=== PATIENT | female | born 1950 | race Caucasian/White ===

== ENCOUNTER 2016-08-22 11:20 | Day surgery (SDC) | payer MEDICARE, OTHER ==
[2016-08-22] VITALS (9 sets, daily range): BP systolic 152–181; BP diastolic 93–99; PULSE 74–94; RESP 18; TEMP 97.9–98.2; O2SAT 97–99
[~2016-08-22] VITALS: Ht 167.6 cm; Wt 68.9 kg
[~2016-08-22 11:20] MED LIST: ALBU8I INH; AMLO5 PO; BARIATRIC MULTIVIT PO; BIOTCAP PO; CYMB60CA PO; DOCU50SY2 PO; ESTR0.053 TD; GAS-CAP3 PO; HYDR25TA35 PO; L-LY500T4 PO; LEXA10TA PO; LORA-392 PO; LOSA100T PO; PROT40TA PO; REST30CA PO; SIMV20 PO; SYNT137T PO; TYLE500T PO; WAL-10TA2 PO; WELLTAB39 PO
[2016-08-22] MEDS ORDERED: POVIDONE IODINE 5% (ANTISEPSIS KIT) 4 APPLICATIONS EACH NARE SCH (12:30)
[2016-08-22] MEDS ORDERED: METOPROLOL TARTRATE 25 MG TAB PO PRN (12:30)
[2016-08-22] MEDS ORDERED: CHLORHEXIDINE GLUCONATE 2 % 1 PACK (2 CLOTHS) TOP SCH (12:30)
[2016-08-22] MEDS ORDERED: ceFAZolin 2 GM PREMIX 50 ML IV SCH (12:30)
[2016-08-22] MEDS ORDERED: VANCOMYCIN 1000 MG/NS 250 ML IV SCH ×2 (12:30)
[2016-08-22] MEDS ORDERED: INSULIN HUMAN REGULAR 1,000 UNITS/10 ML VIAL SQ PRN (12:30)
[2016-08-22] MEDS ORDERED: MUPIROCIN 2% OINT 1 APPLIC/GM SYR NASAL SCH (13:00)
[2016-08-22] MEDS ORDERED: NS 1000 ML IV SCH (13:00)
[2016-08-22] MEDS ORDERED: LACTATED RINGER'S 1000 ML IV SCH (13:00)
[2016-08-22] MEDS: SODIUM CHLORID 0.9% 500 ML IV SCH (13:00)
[2016-08-22 13:13] LABS: AUTOMATED NEUTROPHIL # 3.2 TH/MM3 (1.8-7.7); BASOPHIL # 0.1 TH/MM3 (0-0.2); EOSINOPHIL # 0.2 TH/MM3 (0-0.4); EOSINOPHIL % 3.6 % (0.0-4.0); HEMATOCRIT 37.5 % (35.0-46.0); HEMO FLAGS DIFF FINAL; LYMPH % 34.6 % (9.0-44.0); LYMPHOCYTE # 2.2 TH/MM3 (1.0-4.8); MEAN CELL VOLUME 93.6 FL (80.0-100.0); MEAN CORPUSCULAR HEMOGLOBIN 30.5 PG (27.0-34.0); MEAN CORPUSCULAR HGB CONC 32.6 % (32.0-36.0); MONO % 9.4 % (0.0-8.0); NEUT % 51.4 % (16.0-70.0); PLATELET COUNT 232 TH/MM3 (150-450); RED BLOOD COUNT 4.01 MIL/MM3 (4.00-5.30); RED CELL DISTRIBUTION WIDTH 12.8 % (11.6-17.2); WHITE BLOOD COUNT 6.2 TH/MM3 (4.0-11.0)
[2016-08-22] MEDS ORDERED: HYDR25TA35 PO (13:13)
[2016-08-22] MEDS ORDERED: LIOT5TAB3 PO (13:13)
[2016-08-22] MEDS ORDERED: LEVO-86 PO (13:13)
[2016-08-22] MEDS ORDERED: ATEN25TA PO (13:13)
[2016-08-22] MEDS ORDERED: SIMV40TA PO (13:13)
[2016-08-22] MEDS ORDERED: STOO100C PO (13:13)
[2016-08-22] MEDS ORDERED: FOLI5CAP PO (13:13)
[2016-08-22] MEDS ORDERED: CYMB60CA PO (13:13)
[2016-08-22] MEDS ORDERED: SIME180C2 PO (13:13)
[2016-08-22] MEDS ORDERED: LORA10TA PO (13:13)
[2016-08-22] MEDS ORDERED: LOSA100T PO (13:13)
[2016-08-22] MEDS ORDERED: VIVE0.05 T-DERMAL (13:13)
[2016-08-22] MEDS ORDERED: BIOT7500 PO (13:13)
[2016-08-22] MEDS ORDERED: CALC600T10 PO (13:13)
[2016-08-22] MEDS ORDERED: AMLO10TA2 PO (13:13)
[2016-08-22] MEDS ORDERED: LORA-373 PO (13:13)
[2016-08-22] MEDS ORDERED: TYLE650T9 PO (13:13)
[2016-08-22] MEDS ORDERED: PROT40TA PO (13:13)
[2016-08-22] MEDS ORDERED: TEMA15CA PO (13:13)
[2016-08-22] MEDS ORDERED: WELLTAB39 PO (13:13)
[2016-08-22] MEDS ORDERED: L-LY500C2 PO (13:13)
[2016-08-22] MEDS ORDERED: NORC5TAB PO (13:13)
[2016-08-22] MEDS ORDERED: VENTAER INH (13:13)
[2016-08-22] MEDS ORDERED: PROBCAP11 PO (13:13)
[2016-08-22 13:22] LABS: APTT (PATIENT) 24.6 SEC (24.3-30.1); INTERNATIONAL NORMALIZED RATIO 0.9 RATIO; PROTHROMBIN TIME - PATIENT 10.4 SEC (9.8-11.6)
[2016-08-22] MEDS ORDERED: diphenhydrAMINE HCL 50 MG/ML VIAL ONE (13:33)
[2016-08-22] MEDS ORDERED: HYDROCORTISONE SOD SUCCINATE 100 MG VIAL ONE (13:33)
[2016-08-22 13:36] LABS: BICARBONATE 28.8 MEQ/L (21.0-32.0); POTASSIUM 4.1 MEQ/L (3.5-5.1)
[2016-08-22] MEDS ORDERED: VANCOMYCIN 500 MG VIAL ONE (13:49)
[2016-08-22] MEDS ORDERED: LIDOCAINE HCL 2% 50 ML VIAL ONE (13:50)
[2016-08-22] MEDS ORDERED: ALBUTEROL SULFATE 90 MCG/ACT HFA 8 GM INHALER INH PRN (15:15)
[2016-08-22] MEDS ORDERED: ZOLPIDEM TARTRATE 5 MG TAB PO PRN (15:15)
[2016-08-22] MEDS ORDERED: LORazepam 0.5 MG TAB PO PRN (15:15)
[2016-08-22] MEDS ORDERED: traMADol HCL 50 MG TAB PO PRN (15:15)
--- NOTE | 2016-08-22 15:40 | RADRPT ---
EXAM DATE/TIME: 08/22/2016 15:09 [facility] COMPARISON: CHEST SINGLE AP, September 10, 2015, 17:54. INDICATIONS : Post pacemaker placement. MEDICAL HISTORY : Hypertension. Chronic obstructive pulmonary disease. Hypercholesterolemia. Diabetes. SURGICAL HISTORY : None. ENCOUNTER: Initial ACUITY: 1 day PAIN SCORE: Non-responsive. LOCATION: Bilateral chest FINDINGS: Pacemaker is implanted in the left chest. The heart is minimally enlarged. Pulmonary vascularity is normal. There is no pneumothorax. CONCLUSION: Pacer in good position without pneumothorax. Xavier White MD FACR on August 22, 2016 at 15:36 Board Certified Radiologist. This report was verified electronically.
[2016-08-22] MEDS ORDERED: ACETAMINOPHEN 500 MG CPLT PO PRN (16:15)
[2016-08-22] MEDS ORDERED: TEMAZEPAM 15 MG CAP PO PRN (21:00)
[2016-08-23] VITALS (8 sets, daily range): BP systolic 145–150; BP diastolic 86–98; PULSE 62–95; RESP 16–18; TEMP 98.1–98.3; O2SAT 97–99
[2016-08-23] MEDS ORDERED: VANCOMYCIN INJ 1,000 MG in SODIUM CHLOR 0.9% 250 ML INJ 250 ML IV ONE (03:30)
[2016-08-23] MEDS: SODIUM CHLORID 0.9% 500 ML IV SCH (04:56)
--- NOTE | 2016-08-23 08:43 | PD.CARD.PN ---
Subjective Subjective Remarks Mild incisional pain. No dyspnea, dizziness. Objective Medications Item Value Date Time Atenolol 25 mg 08/23/16899 (Tenormin) DAILY/PO Bupropion HCl 150 mg 08/23/16899 (Wellbutrin Sr) BID/PO Losartan Potassium 100 mg 08/23/16899 (Cozaar) DAILY/PO Vital Signs / I&O Vital Signs Date Time Temp Pulse Resp B/P Pulse Ox O2 Delivery O2 Flow Rate FiO2 08/23/16 08:00 85 08/23/16 08:00 85 08/23/16 07:00 95 08/23/16 07:00 98.3 66 18 150/87 99 08/23/16 05:00 62 08/23/16 04:00 98.1 65 16 145/86 98 08/23/16 04:00 65 08/23/16 03:00 65 08/23/16 02:00 66 08/23/16 01:00 68 08/23/16 00:00 62 08/23/16 00:00 98.1 79 18 147/98 97 08/22/16 23:00 94 08/22/16 22:00 82 08/22/16 21:00 80 08/22/16 20:00 80 08/22/16 20:00 98.0 80 18 181/94 97 08/22/16 19:00 90 08/22/16 18:00 74 08/22/16 17:00 78 08/22/16 16:30 97.9 77 18 152/99 97 08/22/16 12:48 98.2 75 18 178/93 99 I/O 08/22/16 08/22/16 08/22/16 08/23/16 08/23/16 08/23/16 07:00 15:00 23:00 07:00 15:00 23:00 Intake Total 480 ml 240 ml Balance 480 ml 240 ml Intake Oral 480 ml 240 ml # Voids 1 3 Physical Exam Pacer site clean, dry, intact, no hematoma, mild lateral ecchymosis. Laboratory Laboratory Tests Test 08/22/16 12:45 White Blood Count 6.2 TH/MM3 Red Blood Count 4.01 MIL/MM3 Hemoglobin 12.2 GM/DL Hematocrit 37.5 % Mean Corpuscular Volume 93.6 FL Mean Corpuscular Hemoglobin 30.5 PG Mean Corpuscular Hemoglobin 32.6 % Concent Red Cell Distribution Width 12.8 % Platelet Count 232 TH/MM3 Mean Platelet Volume 7.1 FL Neutrophils (%) (Auto) 51.4 % Lymphocytes (%) (Auto) 34.6 % Monocytes (%) (Auto) 9.4 % Eosinophils (%) (Auto) 3.6 % Basophils (%) (Auto) 1.0 % Neutrophils # (Auto) 3.2 TH/MM3 Lymphocytes # (Auto) 2.2 TH/MM3 Monocytes # (Auto) 0.6 TH/MM3 Eosinophils # (Auto) 0.2 TH/MM3 Basophils # (Auto) 0.1 TH/MM3 CBC Comment DIFF FINAL Differential Comment Prothrombin Time 10.4 SEC Prothromb Time International 0.9 RATIO Ratio Activated Partial 24.6 SEC Thromboplast Time Sodium Level 145 MEQ/L Potassium Level 4.1 MEQ/L Chloride Level 109 MEQ/L Carbon Dioxide Level 28.8 MEQ/L Anion Gap 7 MEQ/L Blood Urea Nitrogen 21 MG/DL Creatinine 1.19 MG/DL Estimat Glomerular Filtration 45 ML/MIN Rate Random Glucose 104 MG/DL Calcium Level 8.9 MG/DL Assessment and Plan Problem List: (1) Status post placement of cardiac pacemaker Assessment and Plan: Stable s/p DDD pacer implant for symptomatic SSS. Pacer site OK. Pacer re-interrogation shows stable, good pacing parameters. To discharge home today, same home medications plus Levaquin 500 mg qd for 5 days, one week f/u for incision recheck. Code Status full code Discussed Condition With patient Garret Stoner MD Aug 23, 2016 08:43
[2016-08-23] MEDS ORDERED: CLIN1CAP6 PO (08:49)
[2016-08-23] MEDS ORDERED: ATEN25TA PO (08:49)
[2016-08-23] MEDS ORDERED: LOSARTAN 50 MG TAB PO SCH (09:00)
[2016-08-23] MEDS ORDERED: LORATADINE 10 MG TAB PO SCH (09:00)
[2016-08-23] MEDS ORDERED: ATENOLOL 25 MG TAB PO SCH (09:00)
[2016-08-23] MEDS ORDERED: buPROPion HCL 150 MG SUSTAINED RELEASE TAB PO SCH (09:00)
[2016-08-23] MEDS ORDERED: DULoxetine HCl DR 60 MG CAP PO SCH (09:00)
--- NOTE | 2016-08-23 17:15 | EKG ---
Date Performed: 08/22/2016 Time Performed: 12:24:48 PTAGE: 66 years EKG: Sinus rhythm Possible anteroseptal infarct - age undetermined Lateral ST-T changes are nonspecific Since previous tracing, no significant change noted Abnormal ECG PREVIOUS TRACING : 09/10/2015 16.25 DOCTOR: Vish Loera Interpretating Date/Time 08/23/2016 17:14:06
--- NOTE | 2016-08-23 18:12 | MP ---
cc: RICARDO REILLY M.D. DATE OF SURGERY 08/22/2016 PROCEDURE Dual-chamber permanent pacemaker implantation via the left subclavian vein. INDICATION Symptomatic sick sinus syndrome. OPERATIVE NOTES The patient was brought to the operating suite in a fasting state after having signed informed consent. The left upper chest was prepped and draped as per policy and anesthetized with 1% lidocaine. Central venous access was obtained twice via the left subclavian vein using modified Seldinger technique. A transverse incision was made inferior to the left clavicle and using blunt dissection a subcutaneous pocket was formed down to the pectoralis fascia. Over the more lateral guidewire a 7-[place] Zealander sheath was placed and through this sheath a ventricular active fixation lead was introduced and its tip positioned in the right ventricular apex. At this position, stimulation threshold was suboptimal. It was eventually placed at a slightly septal position where good current of injury, stimulation threshold (0.6 volts) and sensitivity (12.4 mV) were demonstrated. This lead was secured into place using 2-0 silk ties down to the pectoralis fascia. Over the remaining guidewire another 7-[place] Zealander sheath was placed and through this sheath an atrial active fixation lead was introduced and its tip positioned in the right atrial appendage where good current of injury, stimulation threshold (1.2 volts) and sensitivity (3.2 mV) were verified. This lead was secured in place using 2-0 silk ties down to the pectoralis fascia. The leads were then connected to the pacemaker generator which is a Biotronik Eluna device. The leads and the generator were then placed back into the subcutaneous pocket which was closed using 3-0 Vicryl interrupted stitches in two layers to close the subcutaneous tissue and then 4-0 Monocryl running stitch to close the subcuticular tissue. Overlapping Steri-Strips and a dressing were applied. There were no apparent immediate complications. A portable chest x-ray is pending at the time of this dictation. CONCLUSION Successful dual-chamber permanent pacemaker implantation via the left subclavian vein using a Biotronik Eluna pacemaker generator. MD ARIADNA José/ASTER /3:04 PM /6:06 PM PAWEL
== END 2016-08-23 09:39 | disposition home or self-care (01) ==
LOC: HDOC 11:20 → HDIC 11:22 → HSDI 15:51 → UNDOADMOB 15:51 → HDOC 15:51 → HCIN 16:44 → HDOC 08-23 09:39
PROVIDERS: ATTEND Internal Medicine Cardiovascular Disease
DX: I49.5 Sick sinus syndrome (principal); R00.2 Palpitations; I25.10 Atherosclerotic heart disease of native coronary artery without angina pectoris; I49.9 Cardiac arrhythmia, unspecified; I10 Essential (primary) hypertension; J44.9 Chronic obstructive pulmonary disease, unspecified; E78.00 Pure hypercholesterolemia, unspecified; Z79.82 Long term (current) use of aspirin
CPT/HCPCS: 33208; 71010; 80048; 85025; 85610; 85730; 93005; C1785; C1898; J0690; J1200; J1720; J3370; J7050

== ENCOUNTER → 2016-12-08 | Outpatient (CLI) | payer MEDICARE, OTHER ==
[~2016-12-08] MED LIST changes: -ALBU8I INH; +AMLO10TA2 PO; -AMLO5 PO; +ATEN25TA PO; +BIOT7500 PO; -BIOTCAP PO; +CALC600T10 PO; +CLIN1CAP6 PO; -DOCU50SY2 PO; -ESTR0.053 TD; +FOLI5CAP PO; -GAS-CAP3 PO; +L-LY500C2 PO; -L-LY500T4 PO; +LEVO-86 PO; -LEXA10TA PO; +LIOT5TAB3 PO; +LORA-373 PO; -LORA-392 PO; +LORA10TA PO; +NORC5TAB PO; +PROBCAP11 PO; -REST30CA PO; +SIME180C2 PO; -SIMV20 PO; +SIMV40TA PO; +STOO100C PO; -SYNT137T PO; +TEMA15CA PO; -TYLE500T PO; +TYLE650T9 PO; +VENTAER INH; +VIVE0.05 T-DERMAL; -WAL-10TA2 PO
--- NOTE | 2016-12-08 15:28 | RADRPT ---
EXAM DATE/TIME: 12/08/2016 14:03 [facility] COMPARISON: No previous studies available for comparison. INDICATIONS : Vertigo. Headache, neck pain, and confusion. MEDICAL HISTORY : Renal insufficiency. Hypertension. Anemia. SURGICAL HISTORY : Hysterectomy. Cholecystectomy. Fusion, cervical. Fusion, lumabr. Thyroidectomy. Gastric bypass. ENCOUNTER: Initial ACUITY: 1 day PAIN SCORE: 5/10 LOCATION: neck TECHNIQUE: Multiplanar, multisequence MRI examination of the cervical spine was performed. FINDINGS: VERTEBRAE: Bone marrow signal is within normal limits. There is osseous fusion between the C5 and C6 vertebral b odies with anterior plate and screws. There is a hemangioma within the T2 vertebral body. ALIGNMENT: No anterolisthesis or retrolisthesis. CORD: There is mild effacement of the cord at C3-C4 and C4-C5. There is normal signal intensity within the spinal cord. POST FOSSA: The cerebellar tonsils are normal in position. The craniocervical junction and C1-C2 level demonstrate no acute finding. C2-C3: No disc herniation, canal stenosis, or neural foraminal stenosis is present. There is minimal posteri or disc osteophyte complex centrally. C3-C4: There is central posterior disc osteophyte complex and a left paracentral disc protrusion. These rosales ges abut the anterior aspect the spinal cord causing mild effacement of the cord with minimal narrowi ng of the spinal canal. There is moderate to severe left neural foraminal stenosis. There is no right neural foraminal narrowing. C4-C5: Decreased disc height with central posterior disc osteophyte complex which abuts and slightly effaces the spinal cord and mildly narrows the canal. No neural foraminal stenosis is present. C5-C6: There is osseous fusion between the vertebral bodies with minimal posterior osteophytic ridging centr ally. There is no spinal canal stenosis or neural foraminal narrowing. C6-C7: No disc herniation, canal stenosis, or neural foraminal stenosis. C7-T1: No disc herniation, canal stenosis, or neural femoral stenosis. CONCLUSION: 1. There are posterior disc osteophyte complexes at C3-C4 with moderate size left paracentral disc pr otrusion. These findings cause severe left neural foraminal stenosis. 2. Posterior disc osteophyte complex at C4-C5 causing mild spinal canal stenosis and effacement of th e spinal cord. Matthew Smith MD on December 08, 2016 at 15:20 Board Certified Radiologist. This report was verified electronically.
--- NOTE | 2016-12-08 15:52 | RADRPT ---
EXAM DATE/TIME: 12/08/2016 14:03 [facility] COMPARISON: No previous studies available for comparison. INDICATIONS : Vertigo. Headache, neck pain, and confusion. MEDICAL HISTORY : Renal failure, chronic. Hypertension. Anemia. SURGICAL HISTORY : Hysterectomy. Cholecystectomy. Fusion, cervical. Fusion, lumabr. Thyroidectomy. Gastric bypass. ENCOUNTER: Initial ACUITY: 1 day PAIN SCORE: 5/10 LOCATION: cranial TECHNIQUE: Multiplanar, multisequence MRI of the brain was performed without contrast. FINDINGS: CEREBRUM: Was moderate cortical atrophy present. No evidence of intracranial mass or hemorrhage. Ventricles are symmetric and normal. The brainstem and posterior fossa structures are normal. Pituitary and surroun dings are unremarkable. WHITE MATTER: Scattered punctate areas of white matter T2 prolongation which are likely microvascular ischemic POSTERIOR FOSSA: The cerebellum and brainstem are intact. The 4th ventricle is midline. The cerebellopontine angle is unremarkable. The cerebellar tonsils are normal in position. DIFFUSION IMAGING: No focal areas of restricted diffusion are seen. No evidence of acute infarction. EXTRACRANIAL: The visualized portions of the orbits and paranasal sinuses are unremarkable. CONCLUSION: Atrophy and benign appearing white matter changes. No evidence of acute intracranial process. Matthew Kruger MD on December 08, 2016 at 15:47 Board Certified Radiologist. This report was verified electronically.
== END ==
LOC: HRAD 12:50
PROVIDERS: ATTEND Specialist
DX: R42 Dizziness and giddiness (principal)
CPT/HCPCS: 70551; 72141

== ENCOUNTER → 2017-02-06 | Day surgery (SDC) | payer MEDICARE, OTHER ==
[~2017-02-06] MED LIST changes: +ACET650T67 PO; +CALC0.25 PO; +CETI10 PO; +CLAR10CA3 PO; +ESTR.625 PO; +ESTR0.62 VAGINAL; +FOLI1TAB6 PO; +HYDR-3799 PO; -HYDR25TA35 PO; +INCOBOTULINUMTOXINA 100 UNITS VIAL IM ONE; -L-LY500C2 PO; +LACTCAP8 PO; +LORA-392 PO; -LORA10TA PO; +LYSI1TAB4 PO; +MAGN400T24 PO; +MELA3TAB15 PO; -PROBCAP11 PO; +SODIUM CHLORIDE 0.9% 10 ML VIAL ONE; +THER650C PO; +TOPA25TA8 PO; +[UNRECOGNIZED DRUG - CODE] PO; +fentaNYL CITRATE 250 MCG/5 ML AMP ONE
--- NOTE | 2017-02-10 17:33 | M6 ---
cc: BJORN ROWE M.D. Corrected Copy: 02/14/17 DATE: 02/06/2017 DATE OF : 1950. PROCEDURE: Procedure is for injection botulinum toxin type A (Xeomin) right trapezius posterior cervical musculature. History and physical was completed and signed. Consent was signed. Procedure site was marked. Medications were listed and reconciled. Pain score was recorded. Allergies were noted. Time out was taken. Fluoroscopy time was recorded where applicable. Blood pressure cuff, pulse oximeter were applied. The patient was placed in the sitting position. The skin over the right trapezius and posterior cervical musculature was prepped with alcohol. The areas of greatest spasticity were identified. A 27 gauge needle was used to inject a total of 200 units of Xeomin at six different locations corresponding to the areas of greatest spasticity following this the patient was observed in recovery area with stable vital signs prior to being discharged us W. MD GOKUL Duarte/junior /7:43 AM /3:44 PM
== END | disposition home or self-care (01) ==
LOC: PHSDC 06:35
PROVIDERS: ATTEND Pain Medicine Interventional Pain Medicine
DX: M54.2 Cervicalgia (principal); R51 Headache; M25.519 Pain in unspecified shoulder; I10 Essential (primary) hypertension; K21.9 Gastro-esophageal reflux disease without esophagitis; J44.9 Chronic obstructive pulmonary disease, unspecified; E11.9 Type 2 diabetes mellitus without complications; Z95.0 Presence of cardiac pacemaker; Z85.828 Personal history of other malignant neoplasm of skin
CPT/HCPCS: 64616; J0588; J3010

== ENCOUNTER → 2017-02-10 | Day surgery (SDC) | payer MEDICARE, OTHER ==
[~2017-02-10] MED LIST changes: +BUPIVACAINE HCL PF 0.75% 30 ML VIAL ONE; -INCOBOTULINUMTOXINA 100 UNITS VIAL IM ONE; +PROPOFOL 200 MG/20 ML AMP IV ONE; -SODIUM CHLORIDE 0.9% 10 ML VIAL ONE; +TRIAMCINOLONE ACETONIDE 40 MG/ML VIAL I-ARTICULR ONE; -fentaNYL CITRATE 250 MCG/5 ML AMP ONE
--- NOTE | 2017-02-13 07:00 | M6 ---
cc: BJORN RODAS M.D. DATE 02/10/2017 DATE OF 1950 PROCEDURE Fluoroscopically guided injection bilateral lumbar facet joints, of bilateral L1-2, L2-3 and L3-4 lumbar facet joints. History and physical was completed and signed. Consent was signed. Procedure site was marked. Medications were listed and reconciled. Pain score was recorded. Allergies were noted. Time out was taken. Fluoroscopy time was recorded where applicable. Sedation was administered or directed by Dr. Rdoas. The patient was given oxygen. The patient was monitored by a registered nurse. Total procedure time was greater than 15 minutes. PROCEDURE NOTE IV was started. Blood pressure cuff, pulse oximeter and EKG were applied. The patient was placed in the prone position on a Michael table, sedated with small amounts of propofol titrated to effect. Vital signs were monitored and remained stable throughout the procedure. The lumbar area was prepped with alcohol and 10% Betadine solution and draped with sterile drapes. Fluoroscopy was used in a Gabe dog view to clearly visualize the bilateral lumbar facet joints at L1-2, L2-3 and L3-4. Separate sterile 3-1/2-inch, 25-gauge spinal needles were advanced into these joints under fluoroscopic guidance. There was negative aspiration for blood or any other type of fluid. At each location the patient was given 1 mL of Marcaine 0.75% which contained 10 mg of Kenalog. Following the procedure the patient was taken to the recovery room with stable vital signs, neurologically intact. She will be evaluated immediately and with followup to determine if she has a subjective decrease in her usual pain and a corresponding objective increase her functional capabilities. W. Charles Rodas MD WRM/SSB /9:42 AM /6:55 AM
--- NOTE | 2017-02-14 22:58 | M6 ---
cc: Hao ROWE DATE 02/13/2017 DATE OF 1950 PROCEDURE Injection botulinum toxin type A (Xeomin) left trapezius and posterior cervical musculature. PREPROCEDURE DIAGNOSIS Torsion dystonia and painful muscle spasticity. POSTPROCEDURE DIAGNOSIS Torsion dystonia and painful muscle spasticity. History and physical was completed and signed. Consent was signed. Procedure site was marked. Medications were listed and reconciled. Pain score was recorded. Allergies were noted. Time out was taken. Fluoroscopy time was recorded where applicable. Blood pressure cuff, pulse oximeter were applied. The patient was placed in the sitting position. The skin over the left trapezius was prepped with alcohol. The areas of greatest spasticity were identified. A 27 gauge needle was used to inject a total of 200 units of Xeomin at six different locations corresponding to the areas of greatest spasticity. Following this the patient was observed in recovery area with stable vital signs prior to being discharged. MD GOKUL Rush/JUDY /7:17 AM /10:51 PM
== END | disposition home or self-care (01) ==
LOC: PHSDC 07:52
PROVIDERS: ATTEND Pain Medicine Interventional Pain Medicine
DX: M54.5 Low back pain (principal)
CPT/HCPCS: 64493; 64494; 64495; 99152; J3301

== ENCOUNTER → 2017-02-13 | Day surgery (SDC) | payer MEDICARE, OTHER ==
[~2017-02-13] MED LIST changes: -BIOT7500 PO; -BUPIVACAINE HCL PF 0.75% 30 ML VIAL ONE; -CLIN1CAP6 PO; -ESTR.625 PO; -FOLI5CAP PO; +INCOBOTULINUMTOXINA 100 UNITS VIAL IM ONE; -LORA-373 PO; -PROPOFOL 200 MG/20 ML AMP IV ONE; +SODIUM CHLORIDE 0.9% 10 ML VIAL ONE; -TRIAMCINOLONE ACETONIDE 40 MG/ML VIAL I-ARTICULR ONE; -TYLE650T9 PO
--- NOTE | 2017-02-14 22:58 | M6 ---
cc: Hao ROWE DATE 02/13/2017 DATE OF 1950 PROCEDURE Injection botulinum toxin type A (Xeomin) left trapezius and posterior cervical musculature. PREPROCEDURE DIAGNOSIS Torsion dystonia and painful muscle spasticity. POSTPROCEDURE DIAGNOSIS Torsion dystonia and painful muscle spasticity. History and physical was completed and signed. Consent was signed. Procedure site was marked. Medications were listed and reconciled. Pain score was recorded. Allergies were noted. Time out was taken. Fluoroscopy time was recorded where applicable. Blood pressure cuff, pulse oximeter were applied. The patient was placed in the sitting position. The skin over the left trapezius was prepped with alcohol. The areas of greatest spasticity were identified. A 27 gauge needle was used to inject a total of 200 units of Xeomin at six different locations corresponding to the areas of greatest spasticity. Following this the patient was observed in recovery area with stable vital signs prior to being discharged. MD GOKUL Rush/JUDY /7:17 AM /10:51 PM PAWEL
== END | disposition home or self-care (01) ==
LOC: PHSDC 06:22
PROVIDERS: ATTEND Pain Medicine Interventional Pain Medicine
DX: M54.2 Cervicalgia (principal); G24.3 Spasmodic torticollis; R51 Headache; M25.511 Pain in right shoulder; M62.830 Muscle spasm of back
CPT/HCPCS: 64616; J0588

== ENCOUNTER → 2017-09-06 | Day surgery (SDC) | payer MEDICARE, OTHER ==
[~2017-09-06] MED LIST changes: -ACET650T67 PO; +AMLO10 PO; -AMLO10TA2 PO; +BIOT1CAP3 PO; +BUPIVACAINE HCL PF 0.5% 30 ML VIAL ONE; -CLAR10CA3 PO; +DENO60P SQ; +DOCU1CAP66; +DOCU1CAP66 PO; +ESTR.625 PO; +HYDR-3516 PO; -INCOBOTULINUMTOXINA 100 UNITS VIAL IM ONE; -LYSI1TAB4 PO; +LYSI500T12 PO; +MAGN400T2 PO; +MAPA500T13 PO; -MELA3TAB15 PO; +MEPERIDINE HCL 25 MG/ML VIAL IV ONE; +MIDAZOLAM HCL 2 MG/2 ML VIAL IV ONE; -NORC5TAB PO; +PROPOFOL 200 MG/20 ML AMP IV ONE; +SIME1CAP14 PO; -SODIUM CHLORIDE 0.9% 10 ML VIAL ONE; -STOO100C PO; +THER650C; -TOPA25TA8 PO; +TOPI25 PO; +TRIAMCINOLONE ACETONIDE 40 MG/ML VIAL I-ARTICULR ONE; -[UNRECOGNIZED DRUG - CODE] PO; +methylPREDNISolone ACETATE 40 MG/ML VIAL I-ARTICULR ONE
--- NOTE | 2017-09-06 10:41 | M6 ---
cc: Hao RODAS DATE 09/06/2017 DATE OF 1950 PROCEDURE Fluoroscopically guided injection bilateral sacroiliac joints PROCEDURE NOTE History and physical was completed and signed. Consent was signed. Procedure site was marked. Medications were listed and reconciled. Pain score was recorded. Allergies were noted. Time out was taken. Fluoroscopy time was recorded where applicable. Sedation was administered or directed by Dr. Rodas. The patient was given oxygen. The patient was monitored by a registered nurse. Total procedure time was greater than 15 minutes. IV was started, blood pressure cuff, pulse oximeter and EKG were applied. The patient was placed in the prone position on a Michael table sedated with small amounts of propofol titrated to effect. Vital signs were monitored and remained stable throughout the procedure. The sacral area was prepped with alcohol and 10% Betadine solution and draped with sterile drapes. Fluoroscopy was used shooting from medial to lateral to clearly visualize the posterior joint line of the bilateral sacroiliac joints. Separate sterile 5-inch 22-gauge spinal needles were advanced into the joints. There was negative aspiration for blood or any other type of fluid. At each location, the patient was given 2 mL of 0.5% Marcaine, 20 mg of Depo-Medrol and 20 mg of Kenalog. Following the procedure, the patient was taken to the recovery room with stable vital signs neurologically intact. She will be evaluated immediately and with followup to determine if she has a subjective decrease in her usual pain and a corresponding objective increase in her functional capabilities. MD GOKUL Rush/ROSA /10:02 AM /10:35 AM
== END | disposition home or self-care (01) ==
LOC: PHSDC 08:08
PROVIDERS: ATTEND Pain Medicine Interventional Pain Medicine
DX: M25.552 Pain in left hip (principal); M25.551 Pain in right hip; G24.8 Other dystonia; M62.838 Other muscle spasm
CPT/HCPCS: 99152; G0260; J1030; J2175; J2250; J3301; 27096

== ENCOUNTER 2017-09-12 11:20 | Emergency (ER) | payer MEDICARE, OTHER ==
[~2017-09-12] VITALS: Ht 167.6 cm; Wt 70.4 kg
[~2017-09-12 11:20] MED LIST changes: -BUPIVACAINE HCL PF 0.5% 30 ML VIAL ONE; -DOCU1CAP66; -ESTR.625 PO; -MAGN400T2 PO; -MAGN400T24 PO; -MEPERIDINE HCL 25 MG/ML VIAL IV ONE; -MIDAZOLAM HCL 2 MG/2 ML VIAL IV ONE; -PROPOFOL 200 MG/20 ML AMP IV ONE; -SIME1CAP14 PO; -THER650C; -TRIAMCINOLONE ACETONIDE 40 MG/ML VIAL I-ARTICULR ONE; -VIVE0.05 T-DERMAL; -methylPREDNISolone ACETATE 40 MG/ML VIAL I-ARTICULR ONE
[2017-09-12 11:27] VITALS: BP 167/86; PULSE 75; RESP 18; TEMP 98.5; O2SAT 99
[2017-09-12] MEDS ORDERED: SIME1CAP14 PO (11:55)
[2017-09-12] MEDS ORDERED: DOCU1CAP66 (11:55)
[2017-09-12] MEDS ORDERED: THER650C (11:55)
[2017-09-12] MEDS ORDERED: MAGN400T2 PO (11:55)
[2017-09-12] MEDS ORDERED: ESTR.625 PO (11:55)
[2017-09-12] MEDS ORDERED: AMLO10 PO (11:55)
--- NOTE | 2017-09-12 12:39 | PD ---
HPI Chief Complaint: Musculoskeletal Complaint Time Seen by Provider: 11:51 Travel History International Travel<30 days: No Contact w/Intl Traveler<30days: No Traveled to known affect area: No History of Present Illness HPI 67-year-old female that presents to the ED for reevaluation of mechanical fall on Monday. Per patient she accidentally fell and landed on her left rib cage. She is having left hip pain as well as left knee pain. Per patient she's not much concern over the knee bruise but more about the rib pain. She states that the pain gets worse with movements of the shoulder as well as with deep breaths. Per patient he comes and goes. Denies any prior injuries. She does state that she has a history of present plans as well as pacemaker placement on the left side. She is concerned about this. She also states having some lower back pain radiates to both sides in the lower back with some numbness sensation. She does have a history of multiple surgeries to her back. She gets injections as well. States that the pain currently 7 out of 10 on the left rib cage. Gets worse with movement as well as with deep breaths. She also complains of some hip pain and knee pain reproducible with touch but with minimal discomfort. She has allergies to different medications as well as contrast. She was scheduled to have a knee replacement by orthopedic surgeon soon ending medical clearance. PFSH Past Medical History Hx Anticoagulant Therapy: Yes (ASA) Arthritis: Yes Asthma: Yes Blood Disorders: No Anxiety: No Depression: Yes Heart Rhythm Problems: Yes (SINUS JOSÉ MIGUEL) Cancer: Yes (SKIN) Cardiovascular Problems: Yes (PACER) High Cholesterol: Yes Chest Pain: No Congestive Heart Failure: No COPD: Yes Diabetes: Yes (DIET CONTROLLED) Patient Takes Glucophage: No Diminished Hearing: No Endocrine: Yes Gastrointestinal Disorders: Yes (REFLUX, GASTRIC BYPASS) GERD: Yes Glaucoma: No Genitourinary: Yes Headaches: Yes Hepatitis: No Hiatal Hernia: Yes Hypertension: Yes Immune Disorder: No Implanted Vascular Access Dvce: Yes Kidney Stones: Yes (1-2, PASSED PER SELF) Medical other: No Musculoskeletal: Yes Neurologic: No Psychiatric: No Reproductive: No Respiratory: Yes (COPD) Integumentary: No Immunizations Current: No Migraines: No Renal Failure: Yes Seizures: No Sleep Apnea: Yes Thyroid Disease: Yes Ulcer: Yes ?: Not Past Surgical History Abdominal Surgery: Yes (gastric bypass) AICD: No Arteriovenous Shunt: No Body Medical Devices: left knee hardware in the back and neck, BREAST IMPLANT Cardiac Surgery: Yes (PACEMAKER) Cholecystectomy: Yes Ear Surgery: No Endocrine Surgery: Yes (SUB TOTAL THYROIDECTOMY) Eye Surgery: Yes (ROSA MARIA CATARACTS) Genitourinary Surgery: No Gynecologic Surgery: Yes (HYSTERECTOMY ) Hysterectomy: Yes Insulin Pump: No Joint Replacement: Yes (PARTIAL LEFT KNEE) Neurologic Surgery: No (CERVICAL FUSION C5-C6) Oral Surgery: No Pacemaker: Yes Thoracic Surgery: No Tonsillectomy: Yes (and adenoids) Other Surgery: Yes (breast aug, extra skin removal, pacemaker) Social History Alcohol Use: Yes (rare) Tobacco Use: No Substance Use: No Allergies-Medications (Allergen,Severity, Reaction): Coded Allergies: diatrizoate meglumine (Verified Allergy, Severe, hives, 09/12/17) gadobenic acid (Verified Allergy, Severe, hives, 09/12/17) gadodiamide (Verified Allergy, Severe, hives, 09/12/17) gadoteridol (Verified Allergy, Severe, hives, 09/12/17) iodine (Verified Allergy, Severe, hives, 09/12/17) iodixanol (Verified Allergy, Severe, hives, 09/12/17) iohexol (Verified Allergy, Severe, hives, 09/12/17) metronidazole (Verified Allergy, Severe, rash, 09/12/17) moxifloxacin (Verified Allergy, Severe, hives, 09/12/17) potassium iodide (Verified Allergy, Severe, hives, 09/12/17) povidone-iodine (Verified Allergy, Severe, hives, 09/12/17) shellfish derived (Verified Allergy, Severe, hives, 09/12/17) sodium iodide (Verified Allergy, Severe, hives, 09/12/17) sodium iodide (Verified Allergy, Severe, hives, 09/12/17) niacin (Verified Allergy, Intermediate, Flushing, 09/12/17) adhesive (Verified Adverse Reaction, Severe, skin reaction no paper tape , 09/12/17) Reported Meds & Prescriptions Reported Meds & Active Scripts Active Hydrocodone-Acetamin 5-325 mg (Hydrocodone/Acetaminophen) 5 Mg-325 Mg Tablet 1 Tab PO Q6HR PRN Reported Theracran Hp (Cranberry (Vaccinium Macrocarpon)) 650 Mg Cap Stool Softener (Docusate Sodium) 100 Mg Cap Phazyme Maximum Strength (Simethicone) 250 Mg Cap 250 Mg PO BID PRN Magnesium Oxide 400 Mg Tab 400 Mg PO DAILY Premarin (Estrogens Conjugated) 0.625 Mg Tab 0.625 Mg PO DAILY Norvasc (Amlodipine Besylate) 10 Mg Tab 10 Mg PO DAILY Simvastatin 40 Mg Tab 40 Mg PO HS Prolia Inj (Denosumab) 60 Mg/Ml Inj 60 Mg SQ Q180D Cetirizine (Cetirizine HCl) 10 Mg Tab 10 Mg PO DAILY Ativan (Lorazepam) 0.5 Mg Tab 0.5 Mg PO HS PRN Folic Acid 1 Mg Tablet 1 Tab PO DAILY Biotin 10,000 Mcg Capsule 1 Cap PO DAILY Topamax (Topiramate) 25 Mg Tab 25 Mg PO DAILY Calcitriol 0.25 Mcg Cap 0.25 Mcg PO 3XWEEK Hydralazine HCl 25 Mg Tablet 25 Mg PO BID Lysine (Lysine HCl) 500 Mg Tab 1 Tab PO DAILY Probiotic (Lactobacillus Acidophilus) 1 Cap Cap 1 Cap PO DAILY Calcium + D3 (Calcium Carbonate-Cholecalciferol) 600-200 Mg-Unit Tab 1 Chew PO BID Wellbutrin Xl 24 HR (Bupropion HCl) 300 Mg Tab 450 Mg PO DAILY Ventolin Hfa 18 GM Inh (Albuterol Sulfate) 90 Mcg/Act Aer 2 Puff INH Q12HR PRN Temazepam 15 Mg Cap 15 Mg PO HS PRN Synthroid (Levothyroxine Sodium) 137 Mcg Tab 137 Mcg PO DAILY Protonix (Pantoprazole Sodium) 40 Mg Tab 40 Mg PO DAILY Losartan (Losartan Potassium) 100 Mg Tab 100 Mg PO DAILY Liothyronine (Liothyronine Sodium) 5 Mcg Tab 5 Mcg PO DAILY Cymbalta DR (Duloxetine HCl) 60 Mg Capdr 60 Mg PO DAILY Atenolol 25 Mg Tab 25 Mg PO DAILY [Bariatric Multivit] 1 Tab PO DAILY Review of Systems Except as stated in HPI: all other systems reviewed are Neg Physical Exam Narrative GENERAL: SKIN: Warm and dry. HEAD: Atraumatic. Normocephalic. EYES: Pupils equal and round. No scleral icterus. No injection or drainage. ENT: No nasal bleeding or discharge. Mucous membranes pink and moist. Tongue is midline. No uvula deviation. NECK: Trachea midline. No JVD. CARDIOVASCULAR: Regular rate and rhythm. No murmurs, S3, S4. RESPIRATORY: No accessory muscle use. Clear to auscultation. Breath sounds equal bilaterally. GASTROINTESTINAL: Abdomen soft, non-tender, nondistended. Hepatic and splenic margins not palpable. MUSCULOSKELETAL: Extremities without clubbing, cyanosis, or edema. No obvious deformities. Full range of motion of the upper and lower extremities bilaterally. Patient does have bruising noted on the left knee just below the knee. Tender to touch here. We'll do embolism full range of motion of the knee. 2+ pulses bilaterally. Some hip discomfort with range of motion. Patient does have some discomfort to the lumbar musculature. Patient does have surgical scars in the lumbar area from previous surgeries. Most of the pain reproducible on the left rib cage with deep breaths and movement of the shoulder. No obvious shoulder deformity or pain. NEUROLOGICAL: Awake and alert. No obvious cranial nerve deficits. Motor grossly within normal limits. Five out of 5 muscle strength in the arms and legs. Normal speech. PSYCHIATRIC: Appropriate mood and affect; insight and judgment normal. Data Data Last Documented VS Vital Signs Date Time Temp Pulse Resp B/P (MAP) Pulse Ox O2 Delivery O2 Flow Rate FiO2 09/12/17 11:27 98.5 75 18 167/86 (113) 99 Orders Orders Hip, Uni(Ap&Lat) W Ap Pelvis (09/12/17 11:50) Ice/Cold Pack (09/12/17 11:50) Ribs, Uni (W/Exp Cxr-Min 3vw) (09/12/17 ) Ct Lumb Spine W/O Contrast (09/12/17 ) Acetamin-Hydrocod 325-10 Mg ([place] 10-32 (09/12/17 13:45) Ed Discharge Order (09/12/17 14:00) [facility] Medical Decision Making Medical Screen Exam Complete: Yes Emergency Medical Condition: Yes Medical Record Reviewed: Yes Interpretation(s) Last Impressions Hip and Pelvis X-Ray 09/12/17 1150 Signed Impressions: Service Date/Time: Tuesday, September 12, 2017 12:21 - CONCLUSION: No acute pelvis or left hip joint abnormality is identified. Matthew Smith MD Ribs X-Ray 09/12/17 0000 Signed Impressions: Service Date/Time: Tuesday, September 12, 2017 12:21 - CONCLUSION: No rib fracture or acute abnormality is identified. Matthew Smith MD CT of the lumbar spine show chronic changes but no sign of acute disease. Differential Diagnosis Fracture versus sprain versus strain versus contusion versus pneumothorax Narrative Course 67-year-old female that presents to the ED for evaluation of fall. Patient was properly examined and was found to have signs and symptoms of systems appears to be contusion of the rib cage as well as mechanical fall. She does have a significant history. Imaging was ordered. Imaging showed no sign of acute disease. Patient was reassured. This time appears to be contusion. Recommended at this time pain medication as needed. Patient agrees with plan. Follow up with PCP. See ED worsening symptoms. Warm compresses. Diagnosis Primary Impression: Contusion of ribs Qualified Codes: S20.212A - Contusion of left front wall of thorax, initial encounter Additional Impressions: Fall Qualified Codes: W19.XXXA - Unspecified fall, initial encounter Knee contusion Qualified Codes: S80.02XA - Contusion of left knee, initial encounter Patient Instructions: General Instructions Additional Instructions: Take medications as prescribed. Follow-up with PCP. See ED for any worsening symptoms. Do not drink or drive while taking pain medication. Apply ice or heat as needed for pain Med/Other Pt SpecificInfo: Prescription(s) given Scripts Hydrocodone/Acetaminophen (Hydrocodone-Acetamin 5-325 mg) 5 Mg-325 Mg Tablet 1 TAB PO Q6HR Y for PAIN SCALE 1 TO 10, #14 Prov: Mohsen Rivera MD 09/12/17 Disposition: 01 DISCHARGE HOME Condition: Stable Esvin Pak Sep 12, 2017 12:39
--- NOTE | 2017-09-12 13:20 | RADRPT ---
EXAM DATE/TIME: 09/12/2017 12:21 [facility] COMPARISON: CHEST SINGLE AP, August 22, 2016, 15:09. INDICATIONS : Left lateral rib pain at the breast line after fall 5 days ago. MEDICAL HISTORY : Hypothy[place]. [place]. CAD.Hypercholesterolemia. Hypertension. Hiatial hernia. Arthritis. Ostoporosis. K yphosis. SURGICAL HISTORY : Pacemaker. Cardiac cath w/ stent placement. Appendectomy. Lumbar surgery. ENCOUNTER: Initial ACUITY: 4 - 6 days PAIN SCORE: 7/10 LOCATION: Left lateral ribs FINDINGS: 5 views of the left ribs and chest demonstrate no rib fracture or acute rib abnormality. No pneumotho rax is visualized. Left chest wall cardiac pacing device remains present. There is cervical spine ryan dware. Cholecystectomy clips are present and there are multiple surgical catrachita in the left upper qu adrant. CONCLUSION: No rib fracture or acute abnormality is identified. Matthew Smith MD on September 12, 2017 at 13:16 Board Certified Radiologist. This report was verified electronically.
--- NOTE | 2017-09-12 13:21 | RADRPT ---
EXAM DATE/TIME: 09/12/2017 12:21 [facility] COMPARISON: No previous studies available for comparison. INDICATIONS : Left hip pain post fall. MEDICAL HISTORY : Hypothy[place]. [place]. CAD.Hypercholesterolemia. Hypertension. Hiatial hernia. Arthritis. Ostoporosis. K yphosis. SURGICAL HISTORY : Pacemaker. Cardiac cath w/ stent placement. Appendectomy. Lumbar surgery. ENCOUNTER: Initial ACUITY: 4 - 6 days PAIN SCORE: 8/10 LOCATION: Left hip FINDINGS: AP view of the pelvis with 2 views of the left hip joint demonstrates no fracture or dislocation. The bones appear mildly undermineralized. There is mild osteoarthritis of the joints bilaterally. There is lumbosacral hardware. No soft tissue abnormality is identified. CONCLUSION: No acute pelvis or left hip joint abnormality is identified. Matthew Smith MD on September 12, 2017 at 13:19 Board Certified Radiologist. This report was verified electronically.
[2017-09-12] MEDS ORDERED: ACETAMINOPHEN/HYDROcodone 325 MG/10 MG TAB PO ONE (13:45)
--- NOTE | 2017-09-12 13:50 | RADRPT ---
EXAM DATE/TIME: 09/12/2017 13:16 [facility] COMPARISON: No previous studies available for comparison. INDICATIONS : Fell on left side. Lower back pain. RADIATION DOSE: 28.26 CTDIvol (mGy) MEDICAL HISTORY : Hypothyroidism. [place]. CAD.Hypercholesterolemia. Hypertension. Hiatial hernia. Arthritis. Ostoporosis. K yphosis. SURGICAL HISTORY : Pacemaker. Cardiac cath w/ stent placement. Appendectomy. Lumbar surgery. ENCOUNTER: Initial ACUITY: 4 - 6 days PAIN SCALE: 6/10 LOCATION: spine TECHNIQUE: Volumetric scanning of the lumbar spine was performed. Multiplanar reconstructions in the sagittal, coronal and oblique axial planes were performed. Using automated exposure control and adjustment of the mA and/or kV according to patient size, radiation dose was kept as low as reasonably achievable t o obtain optimal diagnostic quality images. DICOM format image data is available electronically for review and comparison. FINDINGS: VERTEBRAE: Normal vertebral body height. No fracture or compression deformity. There has been anterior spinal fu yue at L5-S1 with anterior plate and screws. Bone cages are present at the L4-L5 and L5-S1 disc spac es. ALIGNMENT: No anterolisthesis or retrolisthesis. T12-L1: There is minimal left paracentral disc protrusion. No canal stenosis or neural foraminal stenosis is identified. L1-L2: No disc herniation, canal stenosis, or neural foraminal stenosis is identified. L2-L3: There is a mild diffuse disc bulge. No canal stenosis or neural foraminal stenosis is identified. L3-L4: There is a mild diffuse disc bulge with mild facet and ligamentum flavum hypertrophy. No canal stenos is or neural foraminal narrowing is present. L4-L5: There is beam hardening artifact from the disc hardware which partially obscures the canal. There is mild posterior osteophytic ridging and mild facet hypertrophy. No canal stenosis or neural foraminal narrowing is present. L5-S1: There is osseous fusion at this level with mild posterior osteophytic ridging and mild facet hypertro phy. The hardware causes beam hardening artifact. No spinal canal stenosis or neural foraminal narrow ing is identified. The visualized paraspinous structures demonstrate no acute finding. There is moderate atherosclerotic disease of aorta with ectasia. CONCLUSION: 1. No acute lumbar spine abnormality is identified. There has been prior fusion at L4-L5 and L5-S1. N o significant spinal canal stenosis or neural foraminal narrowing is seen. 2. Moderate atherosclerotic disease of aorta with ectasia. Matthew Smith MD on September 12, 2017 at 13:41 Board Certified Radiologist. This report was verified electronically.
[2017-09-12] MEDS ORDERED: HYDR-3516 PO (13:59)
== END 2017-09-12 14:40 | disposition home or self-care (01) ==
LOC: PHEFT 11:20
DX: S20.212A Contusion of left front wall of thorax, initial encounter (principal); S80.02XA Contusion of left knee, initial encounter; W19.XXXA Unspecified fall, initial encounter; M19.90 Unspecified osteoarthritis, unspecified site; J44.9 Chronic obstructive pulmonary disease, unspecified; E11.9 Type 2 diabetes mellitus without complications; I12.9 Hypertensive chronic kidney disease with stage 1 through stage 4 chronic kidney disease, or unspecified chronic kidney disease; N18.9 Chronic kidney disease, unspecified; E07.9 Disorder of thyroid, unspecified
CPT/HCPCS: 71101; 72131; 73502; 99284

== ENCOUNTER 2017-09-24 16:24 | Emergency (ER) | payer MEDICARE, OTHER ==
[~2017-09-24] VITALS: Ht 167.6 cm; Wt 69.0 kg
[~2017-09-24 16:24] MED LIST changes: +DOCU1CAP66; -DOCU1CAP66 PO; +ESTR.625 PO; -ESTR0.62 VAGINAL; +MAGN400T2 PO; -MAPA500T13 PO; -SIME180C2 PO; +SIME1CAP14 PO; +THER650C; -THER650C PO
[2017-09-24 16:29] VITALS: BP 143/108; PULSE 79; RESP 18; TEMP 98.7; O2SAT 94
[2017-09-24] MEDS ORDERED: ACETAMINOPHEN/HYDROcodone 325 MG/5 MG TAB PO ONE (16:45)
--- NOTE | 2017-09-24 17:08 | PD ---
HPI Chief Complaint: Musculoskeletal Complaint Time Seen by Provider: 16:35 Travel History International Travel<30 days: No Contact w/Intl Traveler<30days: No Traveled to known affect area: No History of Present Illness HPI 67-year-old female that presents to the ED for evaluation of trip and fall today. Per patient this happened earlier today. Per patient she tripped on the floor and landed on tile. She didn't hit her head but denies losing consciousness. Patient reports that she has pain mostly on the right wrist as well as the left knee as well as on the left ribs. Per patient the pain in the left ribs has been ongoing since a fall about 3 weeks ago and notes she's continued to have pain. She states that is not severe as he used to be but she is more concerned about the wrist and the knee. She denies any other medical issues. No urinary or bowel movement issues. No numbness, tingling, weakness. No pain to the neck or back. Pain per patient is 8 out of 10 especially on the wrist. With any range of motion of the wrist. She has a bruise to the left forehead. PFSH Past Medical History Hx Anticoagulant Therapy: Yes (ASA) Arthritis: Yes Asthma: Yes Blood Disorders: No Anxiety: No Depression: Yes Heart Rhythm Problems: Yes (SINUS JOSÉ MIGUEL) Cancer: Yes (SKIN) Cardiovascular Problems: Yes (PACER) High Cholesterol: Yes Chest Pain: No Congestive Heart Failure: No COPD: Yes Diabetes: Yes (DIET CONTROLLED) Patient Takes Glucophage: Yes Diminished Hearing: No Endocrine: Yes Gastrointestinal Disorders: Yes (REFLUX, GASTRIC BYPASS) GERD: Yes Glaucoma: No Genitourinary: Yes Headaches: Yes Hepatitis: No Hiatal Hernia: Yes Hypertension: Yes Immune Disorder: No Implanted Vascular Access Dvce: Yes Kidney Stones: Yes (1-2, PASSED PER SELF) Musculoskeletal: Yes Neurologic: No Psychiatric: No Reproductive: No Respiratory: Yes (COPD) Integumentary: No Immunizations Current: No Migraines: No Renal Failure: Yes Seizures: No Sleep Apnea: Yes Thyroid Disease: Yes Ulcer: Yes ?: Not Past Surgical History Abdominal Surgery: Yes (gastric bypass) AICD: No Arteriovenous Shunt: No Body Medical Devices: left knee hardware in the back and neck, BREAST IMPLANT Cardiac Surgery: Yes (PACEMAKER) Cholecystectomy: Yes Ear Surgery: No Endocrine Surgery: Yes (SUB TOTAL THYROIDECTOMY) Eye Surgery: Yes (ROSA MARIA CATARACTS) Genitourinary Surgery: No Gynecologic Surgery: Yes (HYSTERECTOMY ) Hysterectomy: Yes Insulin Pump: No Joint Replacement: Yes (PARTIAL LEFT KNEE) Neurologic Surgery: Yes (CERVICAL FUSION C5-C6) Oral Surgery: No Pacemaker: Yes Thoracic Surgery: No Tonsillectomy: Yes (and adenoids) Other Surgery: Yes (breast aug, extra skin removal, pacemaker) Social History Alcohol Use: No Tobacco Use: No Substance Use: No Allergies-Medications (Allergen,Severity, Reaction): Coded Allergies: diatrizoate meglumine (Verified Allergy, Severe, hives, 09/24/17) gadobenic acid (Verified Allergy, Severe, hives, 09/24/17) gadodiamide (Verified Allergy, Severe, hives, 09/24/17) gadoteridol (Verified Allergy, Severe, hives, 09/24/17) iodine (Verified Allergy, Severe, hives, 09/24/17) iodixanol (Verified Allergy, Severe, hives, 09/24/17) iohexol (Verified Allergy, Severe, hives, 09/24/17) metronidazole (Verified Allergy, Severe, rash, 09/24/17) moxifloxacin (Verified Allergy, Severe, hives, 09/24/17) potassium iodide (Verified Allergy, Severe, hives, 09/24/17) povidone-iodine (Verified Allergy, Severe, hives, 09/24/17) shellfish derived (Verified Allergy, Severe, hives, 09/24/17) sodium iodide (Verified Allergy, Severe, hives, 09/24/17) sodium iodide (Verified Allergy, Severe, hives, 09/24/17) niacin (Verified Allergy, Intermediate, Flushing, 09/24/17) adhesive (Verified Adverse Reaction, Severe, skin reaction no paper tape , 09/24/17) Reported Meds & Prescriptions Reported Meds & Active Scripts Active Hydrocodone-Acetamin 5-325 mg (Hydrocodone/Acetaminophen) 5 Mg-325 Mg Tablet 1 Tab PO Q6HR PRN Reported Theracran Hp (Cranberry (Vaccinium Macrocarpon)) 650 Mg Cap Stool Softener (Docusate Sodium) 100 Mg Cap Phazyme Maximum Strength (Simethicone) 250 Mg Cap 250 Mg PO BID PRN Magnesium Oxide 400 Mg Tab 400 Mg PO DAILY Premarin (Estrogens Conjugated) 0.625 Mg Tab 0.625 Mg PO DAILY Norvasc (Amlodipine Besylate) 10 Mg Tab 10 Mg PO DAILY Simvastatin 40 Mg Tab 40 Mg PO HS Prolia Inj (Denosumab) 60 Mg/Ml Inj 60 Mg SQ Q180D Cetirizine (Cetirizine HCl) 10 Mg Tab 10 Mg PO DAILY Ativan (Lorazepam) 0.5 Mg Tab 0.5 Mg PO HS PRN Folic Acid 1 Mg Tablet 1 Tab PO DAILY Biotin 10,000 Mcg Capsule 1 Cap PO DAILY Topamax (Topiramate) 25 Mg Tab 25 Mg PO DAILY Calcitriol 0.25 Mcg Cap 0.25 Mcg PO 3XWEEK Hydralazine HCl 25 Mg Tablet 25 Mg PO BID Lysine (Lysine HCl) 500 Mg Tab 1 Tab PO DAILY Probiotic (Lactobacillus Acidophilus) 1 Cap Cap 1 Cap PO DAILY Calcium + D3 (Calcium Carbonate-Cholecalciferol) 600-200 Mg-Unit Tab 1 Chew PO BID Wellbutrin Xl 24 HR (Bupropion HCl) 300 Mg Tab 450 Mg PO DAILY Ventolin Hfa 18 GM Inh (Albuterol Sulfate) 90 Mcg/Act Aer 2 Puff INH Q12HR PRN Temazepam 15 Mg Cap 15 Mg PO HS PRN Synthroid (Levothyroxine Sodium) 137 Mcg Tab 137 Mcg PO DAILY Protonix (Pantoprazole Sodium) 40 Mg Tab 40 Mg PO DAILY Losartan (Losartan Potassium) 100 Mg Tab 100 Mg PO DAILY Liothyronine (Liothyronine Sodium) 5 Mcg Tab 5 Mcg PO DAILY Cymbalta DR (Duloxetine HCl) 60 Mg Capdr 60 Mg PO DAILY Atenolol 25 Mg Tab 25 Mg PO DAILY [Bariatric Multivit] 1 Tab PO DAILY Review of Systems Except as stated in HPI: all other systems reviewed are Neg Physical Exam Narrative GENERAL: SKIN: Warm and dry. HEAD: Atraumatic. Normocephalic. EYES: Pupils equal and round. No scleral icterus. No injection or drainage. ENT: No nasal bleeding or discharge. Mucous membranes pink and moist. Tongue is midline. No Uvula deviation. NECK: Trachea midline. No JVD. CARDIOVASCULAR: Regular rate and rhythm. RESPIRATORY: No accessory muscle use. Clear to auscultation. Breath sounds equal bilaterally. GASTROINTESTINAL: Abdomen soft, non-tender, nondistended. Hepatic and splenic margins not palpable. MUSCULOSKELETAL: Extremities without clubbing, cyanosis, or edema. No obvious deformities. Full range of motion of the upper and lower extremities bilaterally with exception of the right wrist where she has pain with any flexion or extension of the wrist. Some soft tissue swelling noted. She does have some bruising noted and swelling to the left knee just below the kneecap. 2+ pulses bilaterally. No lumbar, thoracic, cervical spine tenderness to palpation. She does have a bruise to the left side of the forehead. She does have reproducible pain on the left breast with touch. NEUROLOGICAL: Awake and alert. No obvious cranial nerve deficits. Motor grossly within normal limits. Five out of 5 muscle strength in the arms and legs. Normal speech. PSYCHIATRIC: Appropriate mood and affect; insight and judgment normal. Data Data Last Documented VS Vital Signs Date Time Temp Pulse Resp B/P (MAP) Pulse Ox O2 Delivery O2 Flow Rate FiO2 09/24/17 16:29 98.7 79 18 143/108 (120) 94 Orders Orders Wrist, Complete ([id number]) (09/24/17 ) Knee, Complete (4vws) (09/24/17 ) Acetamin-Hydrocod 325-5 Mg ([place] 5-325 (09/24/17 16:45) Ct Brain W/O Iv Contrast(Rout) (09/24/17 ) Splint Or Brace Apply/Monitor (09/24/17 17:57) MDM Medical Decision Making Medical Screen Exam Complete: Yes Emergency Medical Condition: Yes Medical Record Reviewed: Yes Interpretation(s) xray of wrist negative for acute disease. xray of left knee negative for acute disease CT of the head negative Differential Diagnosis Fracture versus sprain versus strain versus bruise versus contusion Narrative Course 67-year-old female that presents to the ED for evaluation of fall. Patient was properly examined and was found to have signs and symptoms consistent appears to be fall. Imaging was ordered. Patient was given Lortab for pain. Imaging showed no sign of acute disease. Patient was reassured. Likely contusions and sprain. Wound brace. Patient will be given a prescription for Lortab for pain. Told to follow with PCP. See ED worsening symptoms. Diagnosis Primary Impression: Right wrist sprain Qualified Codes: S63.501A - Unspecified sprain of right wrist, initial encounter Additional Impressions: Knee contusion Qualified Codes: S80.02XA - Contusion of left knee, initial encounter Fall Qualified Codes: W19.XXXA - Unspecified fall, initial encounter Patient Instructions: General Instructions Additional Instructions: Take medications as prescribed. Follow-up with PCP. See ED for any worsening symptoms. Do not drink or drive while taking pain medication. Apply ice or heat as needed for pain Med/Other Pt SpecificInfo: Prescription(s) given Scripts Hydrocodone/Acetaminophen (Hydrocodone-Acetamin 5-325 mg) 5 Mg-325 Mg Tablet 1 TAB PO Q6HR Y for PAIN SCALE 1 TO 10, #14 Prov: Modesto Bello MD 09/24/17 Disposition: 01 DISCHARGE HOME Condition: Esvin [place] Sep 24, 2017 17:08
[2017-09-24] MEDS ORDERED: HYDR-3516 PO (17:09)
--- NOTE | 2017-09-24 17:55 | RADRPT ---
EXAM DATE/TIME: 09/24/2017 17:34 [facility] COMPARISON: No previous studies available for comparison. INDICATIONS : Fell today. left knee pain MEDICAL HISTORY : Diabetes mellitus type II. SURGICAL HISTORY : Left knee ENCOUNTER: Initial ACUITY: 1 day PAIN SCORE: 5/10 LOCATION: Left knee FINDINGS: Medial compartment hemiarthroplasty with intact hardware and anatomic alignment. Diffuse osteopenia. The lateral and patellofemoral compartments are grossly intact with moderate degenerative changes. No distention of the suprapatellar soft tissues. No evidence of acute fracture. CONCLUSION: No evidence of fracture or dislocation. Medial compartment hemiarthroplasty. Juan Carlos Beasley MD on September 24, 2017 at 17:52 Board Certified Radiologist. This report was verified electronically.
--- NOTE | 2017-09-24 17:56 | RADRPT ---
EXAM DATE/TIME: 09/24/2017 17:34 [facility] COMPARISON: No previous studies available for comparison. INDICATIONS : Fell today, all over right wrist pain MEDICAL HISTORY : Diabetes mellitus type II. SURGICAL HISTORY : Left knee ENCOUNTER: Initial ACUITY: 1 day PAIN SCORE: 10/10 LOCATION: Right wrist FINDINGS: Three view examination of the right wrist demonstrates no soft tissue swelling, dislocation, or fract ure. The carpal bones are in normal alignment. The joint spaces are maintained. Bony mineralizatio n is normal. CONCLUSION: 1. No acute findings. Antonio Briceno MD on September 24, 2017 at 17:53 Board Certified Radiologist. This report was verified electronically.
[2017-09-24 18:10] VITALS: RESP 18
--- NOTE | 2017-09-24 18:42 | RADRPT ---
EXAM DATE/TIME: 09/24/2017 18:18 [facility] COMPARISON: No previous studies available for comparison. INDICATIONS : Fall. Left sided contusion RADIATION DOSE: 56.15 CTDIvol (mGy) MEDICAL HISTORY : Hypothyroidism. VT. CAD.Hypercholesterolemia. Hypertension. Hiatial hernia. SURGICAL HISTORY : Pacemaker. Cardiac cath w/ stent placement. Appendectomy. Lumbar surgery. ENCOUNTER: Initial ACUITY: 1 day PAIN SCALE: 4/10 LOCATION: Left cranial TECHNIQUE: Multiple contiguous axial images were obtained of the head. Using automated exposure control and adj ustment of the mA and/or kV according to patient size, radiation dose was kept as low as reasonably a chievable to obtain optimal diagnostic quality images. DICOM format image data is available electro nically for review and comparison. FINDINGS: CEREBRUM: The ventricles are normal for age. Moderate cortical atrophy in the frontal region bilaterally. The re is a small ill-defined area of decreased attenuation in the white matter, subcortical, anterior se ptal vein on the left side, best seen on axial image #19. No evidence of midline shift, mass lesion, hemorrhage or acute infarction. No extra-axial fluid collections are seen. POSTERIOR FOSSA: The cerebellum and brainstem are intact. The 4th ventricle is midline. The cerebellopontine angle i s unremarkable. EXTRACRANIAL: The visualized portion of the orbits is intact. SKULL: The calvaria is intact. No evidence of skull fracture. CONCLUSION: 1. No evidence of acute hemorrhage or mass effect. 2. Bilateral cortical atrophy, and focal area of hypodensity in the left perisylvian subcortical whit e matter. Juan Carlos Beasley MD on September 24, 2017 at 18:38 Board Certified Radiologist. This report was verified electronically.
== END 2017-09-24 18:55 | disposition home or self-care (01) ==
LOC: PHEFT 16:24
DX: S63.501A Unspecified sprain of right wrist, initial encounter (principal); S80.02XA Contusion of left knee, initial encounter; R07.81 Pleurodynia; J45.909 Unspecified asthma, uncomplicated; J44.9 Chronic obstructive pulmonary disease, unspecified; I10 Essential (primary) hypertension; W01.0XXA Fall on same level from slipping, tripping and stumbling without subsequent striking against object, initial encounter; Y93.01 Activity, walking, marching and hiking; Y92.009 Unspecified place in unspecified non-institutional (private) residence as the place of occurrence of the external cause; Z79.01 Long term (current) use of anticoagulants
CPT/HCPCS: 70450; 73110; 73564; 99284; L3908